=== PATIENT | female | born 1990 | race Caucasian/White ===

== ENCOUNTER 2021-03-21 07:14 | Emergency (ER) | payer OTHER ==
[~2021-03-21] VITALS: Ht 175.3 cm; Wt 136.1 kg
[2021-03-21 07:42] LABS: URINE BILIRUBIN NEGATIVE (Negative); URINE BLOOD 3+ (Negative); URINE CLARITY CLEAR; URINE COLOR YELLOW; URINE GLUCOSE-RANDOM* NEGATIVE (Negative); URINE KETONES NEGATIVE (Negative); URINE NITRITE-REFLEX NEGATIVE (Negative); URINE PROTEIN (DIPSTICK) NEGATIVE (Negative); URINE SPECIFIC GRAVITY 1.015 (1.005-1.035); URINE UROBILINOGEN 0.2 E.U./dl (0.2-1.0)
[2021-03-21 07:44] LABS: URINE LEUKOCYTES-REFLEX 2+ (Negative)
[2021-03-21 08:03] LABS: BASOPHILS 0.7 % (0.0-2.0); EOSINOPHILS 2.6 % (0.0-3.0); HEMATOCRIT 41.2 % (37.0-47.0); LYMPHOCYTES 27.4 % (24.0-44.0); MCH 30.3 pg (26.0-34.0); MCV 89.1 fL (80.0-100.0); PLATELET COUNT 273 thou/uL (150-400); POLYS 63.3 % (36.0-66.0); RBC 4.62 mil/uL (4.20-5.00); RDW 13.2 % (10.5-14.5); WBC 7.9 thou/uL (4.0-11.0)
[2021-03-21 08:06] LABS: CALCIUM 8.2 mg/dL (8.5-10.1); CREATININE 0.6 mg/dL (0.6-1.0)
[2021-03-21 08:09] LABS: POTASSIUM 3.6 mmol/L (3.5-5.1)
[2021-03-21 08:13] LABS: ALBUMIN 3.4 g/dL (3.4-5.0); TOTAL BILIRUBIN 0.2 mg/dL (0.2-1.0); TOTAL PROTEIN 7.4 g/dL (6.4-8.2)
[2021-03-21 08:21] LABS: CASTS None Seen /LPF (None Seen); CRYSTALS None Seen /LPF (None Seen); SQUAMOUS 4-10 Moderate /LPF (0-3); URINE RBC 3-10 Few /HPF (NONE SEEN); URINE WBC-REFLEX 6-15 Few /HPF (0-5)
[2021-03-21 08:22] LABS: BACTERIA-REFLEX 1-9 Few /HPF (None Seen)
[2021-03-21] MEDS ORDERED: ZOFRAN ODT4 MG PO (09:47)
[2021-03-21] MEDS ORDERED: PROTONIX40 M2 PO (09:47)
[2021-03-21 11:26] VITALS: BP 150/79
== END 2021-03-21 11:27 | disposition home or self-care (01) ==
LOC: ER 07:14
PROVIDERS: Emergency Medicine
DX: F10.10 Alcohol abuse, uncomplicated (principal); K29.70 Gastritis, unspecified, without bleeding; Y90.9 Presence of alcohol in blood, level not specified